=== PATIENT | male | born 1955 | race Caucasian/White ===

== ENCOUNTER 2017-09-06 14:35 | Inpatient (IN) | payer MEDICARE, MEDICAID ==
[2017-09-06 15:30] VITALS: BP 142/81
[2017-09-06] MEDS ORDERED: Magnesium Hydroxide (MOM) 30 mL UDC PO PRN (15:31)
[2017-09-06] MEDS ORDERED: Maalox 30 mL Cup PO PRN (15:31)
--- NOTE | 2017-09-07 07:45 | Diagnostic Imaging Report ---
CHEST X-RAY: AP view INDICATION: Tuberculosis COMPARISON: None FINDINGS: Increased interstitial lung markings are noted. There is no focal consolidation or pleural effusions The heart is normal in size. There is probably mild atherosclerosis of the aortic arch. The osseous structures are intact. IMPRESSION: Increased initial lung markings suggestive of chronic lung changes. No focal consolidation identified. There is no radiographic evidence of active tuberculosis. Please correlate with clinical findings.
[2017-09-07] MEDS: Multivitamin Tab PO SCH (08:40)
--- NOTE | 2017-09-07 09:31 | Diagnostic Imaging Report ---
Right foot 3 views Indication: Infection Comparison: none Findings: Moderate degenerative changes are seen with a marginal osteophytic spurring. No evidence of an acute fracture. Marked hallux valgus is noted. Mild soft tissue swelling along the dorsal hindfoot is noted. No obvious erosions identified. There is faint density along the heel region. A small distal Achilles spur is noted. Impression: No x-ray evidence of osteomyelitis, however, if clinically indicated MRI may also be obtained for further assessment. Mild soft tissue swelling of the dorsal hindfoot. Moderate degenerative changes. Marked hallux valgus. Faint radiodensity probably external material seen along the heel region please correlate clinically. In the setting of trauma, if clinical symptoms persist and there is continued concern for an occult fracture, follow up exams in 5-7 days is suggested.
[2017-09-07 10:16] LABS: ALB/GLOB RATIO 1.2 (1.0-1.8); ALKALINE PHOSPHATASE 63 U/L (34-104); ANION GAP 8.2 (7.0-16.0); BUN - UREA NITROGEN 15 mg/dL (7-25); BUN/CREATININE RATIO 18.8; CALCIUM SERUM 9.4 mg/dL (8.6-10.3); CARBON DIOXIDE 23.7 mEq/L (21.0-31.0); CHLORIDE 105 mEq/L (98-107); CREATININE - SERUM 0.8 mg/dL (0.7-1.3); GLUCOSE 118 mg/dL (70-105); MAGNESIUM 2.2 mg/dL (1.9-2.7); POTASSIUM SERUM 3.9 mEq/L (3.5-5.1); SGOT 23 U/L (13-39); SGPT/ALT 32 U/L (7-52); SODIUM SERUM 133 mEq/L (136-145)
--- NOTE | 2017-09-07 15:04 | History & Physical ---
ADMIT DATE: 09/07/2017 PATIENT'S ID: A 62-year-old male. CHIEF COMPLAINT: "I am depressed." HISTORY SOURCE: Talking to the patient as well as reviewing the chart. HISTORY OF PRESENT ILLNESS: A 62-year-old male with longstanding history of bipolar disorder, take psychotropic medications, presented to [facility] for evaluation of suicidal ideation and plan to kill himself. The patient was evaluated at Emergency Room and subsequently transferred to [facility] for further management. PAST MEDICAL HISTORY: Negative for diabetes, hypertension, kidney disease, liver disease, but remarkable for osteoarthritis. MEDICATIONS AT HOME: He is taking Abilify, Zyprexa, and Neurontin. ALLERGIES: The patient is not allergic to medications. SOCIAL HISTORY: He lives by himself. The patient has no smoking cigarette, alcohol, or drug use. FAMILY MEDICAL HISTORY: Negative for diabetes, hypertension, kidney disease, liver disease. REVIEW OF SYSTEMS: The patient is complaining of pain on the right fifth toe and swelling as well. The patient denies any headache, blurred vision, double vision, dysphagia, odynophagia, runny nose, stuffy nose, fever, chills, cough, chest pain, shortness of breath, palpitation, dizziness, nausea, vomiting, diarrhea, dysuria, hematuria, hematochezia, melena. No seizure or syncopal episode. PHYSICAL EXAMINATION: GENERAL: The patient is alert, awake, lying in the bed without any acute distress. VITAL SIGNS: Temperature 98.6, pulse 74, respiratory rate 18, blood pressure 110/70. HEENT: Normocephalic, atraumatic. Extraocular muscles are intact. Tongue was pink and coated. Poor dentition noted. No oral lesion, no exudate. No sinus tenderness. External auditory canal and tympanic membranes are well visualized. NECK: Supple, no JVD, no hepatojugular reflex. No lymphadenopathy, thyromegaly, or carotid bruit. HEART: Both heart sounds are regular. No S3, no S4, no murmur. CHEST: Lung equal in expansion, no expiratory wheezing. ABDOMEN: Normal. Soft. No guarding, no rigidity. Liver and spleen palpable. No palpable mass. EXTREMITIES: No edema, no cyanosis, no clubbing. Peripheral pulses +2. No calf tenderness noted. There is evidence of abscess at the base of the left fifth toe nail bed area noted with ____ tender to touch noted. There is some discoloration of the right great toe also noted. Hammer toe was also noted as well. Peripheral pulses are +2. No calf tenderness. NEUROLOGIC: Alert, awake, oriented to time, place, and person. A 2-12 cranial nerves are intact. Power in upper and lower extremities 5+. Sensation to touch intact. Babinskis in both toes are going down. No cerebral sign. AVAILABLE DIAGNOSTIC DATA: Performed in the Emergency Room is remarkable for potassium of 2.9. A chest x-ray done here ____ hospital, which remarkable for chronic fibrotic changes on chest x-ray, but no focal consolidation. CLINICAL IMPRESSION: 1. Right fifth toe abscess at the nail bed area, needs incision and drainage. 2. Hammer toe. 3. Hypokalemia. 4. Psychotic disorder. 5. Degenerative joint disease. 6. Health maintenance. PLAN: 1. In the view of his abscess, the patient needs to have a drainage. We will have a surgeon to see the patient and do the I and D. 2. The patient will be placed on Cipro and clindamycin to cover pseudomonas as well as staph aureus including MRSA. 3. The patient ____ the right foot to rule out osteomyelitis. 4. The patient is to have recheck CMP and magnesium in order to evaluate hypokalemia status. 5. Psychiatric evaluation and management, deferred to psychiatrist. 6. The patient is medically stable to participate in activity per the Geropsych unit. 7. The patient will be followed by us during his stay in the hospital. 8. Care plan reviewed and discussed with staff. JOB# [id number]
--- NOTE | 2017-09-07 23:18 | Psychosocial Evaluation ---
DATE OF SERVICE: 09/07/2017 Information obtained by directly interviewing the patient as well as reviewing the admission papers and they are reliable. JUSTIFICATION OF HOSPITALIZATION: The patient is admitted here on a voluntary basis in view of his acute mood swings and threats to hurt himself. CHIEF COMPLAINT: "I am feeling upset, I'm feeling depressed and I need some help." HISTORY OF PRESENT ILLNESS: This is one of multiple psychiatric hospitalizations for this patient who has possibly been diagnosed to have bipolar disorder. The patient is stating that he has been on 2 mg twice a day of the Klonopin and 600 mg 3 times a day of the gabapentin and he is also receiving Abilify 5 mg in the morning. On the day of the hospitalization the patient was threatening to hurt himself by running into the traffic and the patient has been advised to come over here for stabilization. The patient is very agitated at the time of the hospitalization and has been demanding. PAST PSYCHIATRIC HISTORY: Please refer to the above. The patient was hospitalized on many occasions in [place]. PAST MEDICAL HISTORY: Denies any medical problems. SUBSTANCE ABUSE HISTORY: The patient has a history of using methamphetamine. SOCIAL HISTORY: The patient is currently homeless. PHYSICAL OR SEXUAL ABUSE HISTORY: None. LEGAL PROBLEMS: None at this time. STRENGTH AND ASSETS: The patient is motivated. MENTAL STATUS EXAMINATION: The patient is a 62-year-old thin built, superficially cooperative. Eye contact is fair. Mood is noted to be irritable. Affect is constricted. Speech is noted to pressured. Insight and judgment at this time are noted to be very much impaired. Impulse control seems to be poor. Coping skills are also noted to be poor. The patient has been very much demanding that he does not like the facilities at the hospital and he wants to be transferred to a different facility. The patient's coping skills at this time are noted to be very poor. The patient needs to be redirected constantly. DIAGNOSTIC IMPRESSION: The patient is alert and oriented x 3. Short and intermediate memory noted to be intact. The patient is fully aware that he is in the hospital and the patient's behavior is likely danger to self. IMMEDIATE TREATMENT PLAN: The patient is going to be started on the Neurontin, Ativan, and Abilify. ESTIMATED LENGTH OF STAY: 5-7 days. DISCHARGE CRITERIA: When he no longer a threat to self or others and be able to cope up with the stress. JOB# [id number]
[2017-09-08] MEDS: Multivitamin Tab PO SCH (08:24)
--- NOTE | 2017-09-08 23:31 | Progress Notes ---
DATE: 09/08/2017 PSYCHIATRIC PROGRESS NOTE SUBJECTIVE: Staff was spoken to. The patient is interviewed. Mood is noted to be irritable. Affect is constricted. The patient's insight and judgment are noted to be still impaired. Impulse control is noted to be poor continues to be hyperactive. The patient needs to be redirected. The patient is currently on aripiprazole 5 mg at bedtime. The patient is stating that he is also on gabapentin that has been of some help. Sleep is noted to be poor. Appetite is noted to be fair, but the patient is very demanding at this time. ASSESSMENT: The patient is still psychotic. PLAN: To continue the patient with supportive therapy. I encouraged the patient to verbalize the concerns rather than to act out. JOB# [id number]
[2017-09-09] MEDS: Multivitamin Tab PO SCH (08:11)
[2017-09-09] MEDS: Triple Antibiotic 0.94 gm Pkt TP SCH (11:15)
--- NOTE | 2017-09-09 12:40 | History & Physical ---
ADMIT DATE: 09/09/2017 REFERRING PHYSICIAN: Dr. Sullivan. REASON FOR CONSULTATION: Blister right fifth toe and pain right foot. Thank you for referring this patient to me. HISTORY OF PRESENT ILLNESS: The patient is a 62-year-old male admitted because of bipolar disorder. He claimed that his right fifth toe developed a blister about a week ago. Additionally, he has got a painful first MP joint, especially when wearing tight shoes. LABORATORY STUDIES: Show the chemistry to be essentially normal. The CBC is normal also. X-ray of the foot shows hallux valgus on the right side. No fracture. PHYSICAL EXAMINATION: The patient appears to be oriented. There is a blister at the top of the right fifth toe, which is hemorrhagic. IMPRESSION: Painful hallux valgus on the right first MP joint. PLAN: We will debride the blister and apply local ointment. JOB# [id number]
--- NOTE | 2017-09-09 12:54 | Operative Report ---
DATE OF SURGERY: 09/09/2017 PREOPERATIVE DIAGNOSIS: Blister, right fifth toe. POSTOPERATIVE DIAGNOSIS: Blister, right fifth toe. OPERATION DONE: Debridement of the toe. PROCEDURE: The area was prepped with alcohol swab. Blister was excised. Local wound care consisting of Triple antibiotic ointment will be ordered. JOB# [id number]
--- NOTE | 2017-09-10 01:47 | Progress Notes ---
DATE: 09/09/2017 PSYCHIATRIC PROGRESS NOTE Staff was spoken to. The patient is interviewed. Mood is noted be irritable. Affect is constricted. The patient is stating that he needs to be on 2 mg 3 times a day with the Klonopin. Coping skills are noted to be very poor. Insight and judgment are noted to be very much impaired. The patient is stating that he is too young and does not belong to the unit, he needs to go to [facility]. ASSESSMENT AND PLAN: The patient is still impulsive and having mood swings but the patient is not letting me to increase the dose on the Abilify. The patient is stating that he can not take more than 5 mg of the Abilify. In view of his persistent agitation and anxiety, it is decided to place the patient on 0.5 mg of Klonopin q.6 hours p.r.n. and follow the patient with supportive therapy. The patient is refusing to be on any mood stabilizers at this time. JOB# [id number]
[2017-09-10] MEDS: Multivitamin Tab PO SCH (08:40)
[2017-09-10 08:42] LABS: % BASOPHILS 0.6 % (0.0-2.0); % EOSINOPHILS 3.8 % (0.0-5.0); % LYMPHOCYTES 25.2 % (20.0-50.0); % MONOCYTES 8.3 % (2.0-10.0); % NEUTROPHILS 62.1 % (40.0-80.0); HEMATOCRIT 45.9 % (41.0-60); HEMOGLOBIN 15.2 gm/dL (12-16); MEAN CORPUSCULAR HEMOGLOBIN 29.2 pg (26.0-30.0); MEAN CORPUSCULAR HGB CONC 33.1 pg (28.0-36.0); MEAN PLATELET VOLUME 8.5 fl; NEUTROPHILE ABSOLUTE 3.4 Th/cmm (1.8-8.0); PLATELET COUNT 372 Th/cmm (150-400); RED BLOOD COUNT 5.22 Mil/cmm (4.30-5.70); RED CELL DISTRIBUTION WIDTH 13.5 % (11.5-20.0); WHITE BLOOD COUNT 5.4 Th/cmm (4.8-10.8)
[2017-09-10] MEDS: Triple Antibiotic 0.94 gm Pkt TP SCH (10:25)
--- NOTE | 2017-09-11 01:42 | Progress Notes ---
DATE: 09/10/2017 The patient seen and examined. The patient was seen by Dr. Cam and had a debridement of the toe. The patient is currently taking p.o. antibiotics. The patient states that he feels better. He does have some soreness of the lower lip area though the patient denies any fever or chills. The patient is remaining very cooperative. Denies any headache, nausea, vomiting, diarrhea. OBJECTIVE: VITAL SIGNS: Temperature 98.3, pulse 70, respiratory rate 18, blood pressure is 115/59. HEENT: No facial asymmetry plus tiny clusters of blisters at the lower lip area noted. NECK: Supple, no JVD. No hepatojugular reflex. No lymphadenopathy, thyromegaly or carotid bruit. HEART: Both heart sounds are regular. No S3, no S4. CHEST: Lung equal in expansion. No wheezing, no crackles. ABDOMEN: Soft, no guarding, no rigidity. Bowel sounds are present. No palpable mass. EXTREMITIES: No edema, no cyanosis and intact dressing on the right fifth toe was noted. NEUROLOGIC: Nonfocal. CLINICAL IMPRESSION: 1. Status post debridement of abscess of the right fifth toe. 2. No evidence of osteomyelitis. 3. 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 4. Hammertoe. 5. Degenerative joint disease. PLAN: 1. Continue antibiotic. 2. Wound care. 3. Psych medications. 4. General nursing care. 5. The patient is medically stable at this time to participate in the activity per the Geropsych Unit. 6. The patient will be seen by us on an as needed basis. JOB# [id number]
--- NOTE | 2017-09-11 02:04 | Progress Notes ---
DATE: 09/10/2017 SUBJECTIVE: Staff was spoken to. Patient is interviewed. Mood is irritable. Affect is constricted. The patient is stating that he does not belong here and he needs to be in different hospital. The patient has been getting easily agitated. Insight and judgment at this time are noted to be still impaired. Impulse control seems to be limited, but however, the patient is not presenting with any threats to harm self or others. The patient has a history of using methamphetamine. The patient is stating that he is doing fairly well and we would like to continue treatment on an outpatient basis. ASSESSMENT: The patient is stabilizing. PLAN: To discharge the patient today for followup on outpatient basis. JOB# [id number]
[2017-09-11] MEDS: Multivitamin Tab PO SCH (09:04)
[2017-09-11] MEDS: Triple Antibiotic 0.94 gm Pkt TP SCH (09:04)
--- NOTE | 2017-09-11 19:24 | Progress Notes ---
DATE: 09/11/2017 PSYCHIATRIC PROGRESS NOTE SUBJECTIVE: Staff was spoken to. The patient is interviewed. Mood is noted to be irritable. Affect is constricted. The patient's insight and judgment at this time are noted to be still impaired. Impulse control is noted to be poor. The patient is reported to have ____ and the patient has been demanding that he should be discharged and the patient finally was discharged, but he states that he does not know how to get to [place] and the patient has been readmitted to the unit for stabilization. The patient is reported to be very frustrated. ASSESSMENT: The patient is still having mood swings. PLAN: To continue the patient with the Abilacey and Klonopin. I encouraged the patient to verbalize the concerns rather than to act out. JOB# [id number]
[2017-09-12] MEDS: Triple Antibiotic 0.94 gm Pkt TP SCH (08:57)
[2017-09-12] MEDS: Multivitamin Tab PO SCH (08:58)
--- NOTE | 2017-09-12 22:11 | Progress Notes ---
DATE: 09/12/2017 PSYCHIATRIC PROGRESS NOTE SUBJECTIVE: Staff was spoken to. The patient is interviewed. Mood is noted to be irritable. Affect is constricted. The patient is stating that he has been getting in touch with his brother and he is going to be arranging a ticket from to get back to his place. The patient has no to his illness. ASSESSMENT: The patient's mood swings are coming under control, but patient has no place to return to what patient is insisting that he is going to be talking to his brother arranging the ticket to go back. ASSESSMENT: The patient's mood swings are coming under control. PLAN: To work with a mattress spring encaser with regard to the patient's discharge plans. JOB# [id number]
== END 2017-09-12 13:30 | disposition home or self-care (01) | DRG 885 ==
LOC: GERO 14:35 → UNDODISIN 09-10 12:45 → GERO 09-11 09:54
PROC: 0HBMXZZ Excision of Right Foot Skin, External Approach (ICD-10-PCS; principal; 2017-09-09)
DX: F31.9 Bipolar disorder, unspecified (principal); R45.851 Suicidal ideations; L02.611 Cutaneous abscess of right foot; F29 Unspecified psychosis not due to a substance or known physiological condition; E87.6 Hypokalemia; M19.90 Unspecified osteoarthritis, unspecified site; M20.40 Other hammer toe(s) (acquired), unspecified foot; S90.424A Blister (nonthermal), right lesser toe(s), initial encounter; M20.11 Hallux valgus (acquired), right foot; F41.9 Anxiety disorder, unspecified; B00.9 Herpesviral infection, unspecified; Z59.0 Homelessness
CPT/HCPCS: 36415-UA; 71010-TC; 73620-TC-RT; 80053-TC; 83735-TC; 85025-TC; 86592-TC; 93005; Z7610